=== PATIENT | male | born 1995 | race African-American/Black ===

== ENCOUNTER 2017-01-09 15:50 | Emergency (ER) | payer SELFPAY ==
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
[2017-01-09 19:02] VITALS: BP 131/65
--- NOTE | 2017-01-09 19:50 | EKG REPORT ---
SEVERITY:- OTHERWISE NORMAL ECG - SINUS RHYTHM BORDERLINE RIGHT AXIS DEVIATION ST ELEV, PROBABLE NORMAL EARLY REPOL PATTERN : Confirmed by: Nicole Arauz 09-Jan-2017 19:50:11
== END 2017-01-09 19:07 ==
LOC: ER 15:50
DX: T14.91 Suicide attempt (principal); X83.8XXA Intentional self-harm by other specified means, initial encounter; Y92.143 Cell of prison as the place of occurrence of the external cause
CPT/HCPCS: 93005; 93010; 99284

== ENCOUNTER 2018-11-24 16:51 | Emergency (ER) | payer SELFPAY ==
[2018-11-24] MEDS ORDERED: PENICILLIN V POTASSIUM 500 MG TABLET PO ONE (18:11)
[2018-11-24] MEDS ORDERED: BENZONATATE 100 MG CAPSULE PO ONE (18:11)
[2018-11-24] MEDS ORDERED: IBUPROFEN 800 MG TABLET PO ONE (18:11)
--- NOTE | 2018-11-24 18:12 | ER Document Report ---
HPI - HPI Patient complains to provider of: dental pain Time Seen by Provider: 11/24/18 18:07 Onset: Yesterday Onset/Duration: Sudden Quality of pain: Achy Severity: Severe Pain Level: 4 Context: Patient presents emergency department with complaints of right upper dental pain. Reports symptoms started yesterday. Denies biting into something or breaking tooth. Reports tooth hurts no matter what with heat with cold anything. Denies other symptoms such as fever vomiting diarrhea. Associated Symptoms: None Exacerbated by: Denies Relieved by: Denies Similar symptoms previously: No Recently seen / treated by doctor: No Past Medical History - General Information source: Patient - Social History Smoking Status: Unknown if Ever Smoked Family History: Reviewed & Not Pertinent Patient has suicidal ideation: No Patient has homicidal ideation: No Psychiatric Medical History: Reports: Hx Attention Deficit Hyperactivity Disorder, Hx Depression Surgical Hx: Negative Vertical Provider Document - CONSTITUTIONAL Agree With Documented VS: Yes Exam Limitations: No Limitations General Appearance: WD/WN, No Apparent Distress - INFECTION CONTROL TRAVEL OUTSIDE OF THE [place] IN LAST 30 DAYS: No - HEENT HEENT: Atraumatic, Normocephalic. negative: Pharyngeal Exudate, Pharyngeal Erythema, Tympanic Membrane Red, Tympanic Membrane Bulging Mouth Diagram: 1 - pt c/o pain, no obvious infection. No erythema no swelling no pustule opens mouth wide no Donaldo's good airway - NECK Neck: Normal Inspection, Supple. negative: Lymphadenopathy-Left, Ly mphadenopathy-Right - RESPIRATORY Respiratory: Breath Sounds Normal, No Respiratory Distress - CARDIOVASCULAR Cardiovascular: Regular Rate - MUSCULOSKELETAL/EXTREMETIES Musculoskeletal/Extremeties: MAEW, FROM - NEURO Level of Consciousness: Awake, Alert, Appropriate - DERM Integumentary: Warm, Dry Course - Re-evaluation Re-evalutation: 11/24/18 18:16 Patient was instructed on plan of care to test out his pain with the treatment of Tessalon Perles. He was instructed that it could numb his throat. He was also instructed on the timeframe because he notes that he just wants to get out here. 11/24/18 18:43 patient reports Tessalon Perles did help his tooth pain. We will write him a prescription. He was instructed on follow-up with dentist and given written resources information. He verbalized understanding all instructions Dictation of this chart was performed using voice recognition software; therefore, there may be some unintended grammatical errors. - Vital Signs Vital signs: Temp Pulse Resp BP Pulse Ox 98.7 F 62 18 139/66 H 100 11/24/18 16:59 11/24/18 16:59 11/24/18 16:59 11/24/18 16:59 11/24/18 16:59 Discharge - Discharge Clinical Impression: Pain, dental Condition: Stable Disposition: HOME, SELF-CARE Instructions: [facility], Use of Lhui-Hqg-Rnzkplu Ibuprofen ([facility]), Penicillin V K ([facility]), Toothache ([facility]), Tessalon Perles ([facility]) Additional Instructions: *You have been evaluated for dental pain *Take medications as prescribed *Follow up with dentist this week *Return to ED for worsening condition, changes, needs Monitor your blood pressure. Your blood pressure was elevated today. This may be because you were anxious, in pain or because you need medication. It is important to follow up with your primary care provider for full evaluation. Prescriptions: Benzonatate [Tessalon Perles 100 mg Capsule] 100 mg PO ASDIR PRN #20 capsule PRN Reason: Penicillin V Potassium [Penicillin Vk 500 mg Tablet] 500 mg PO BID #20 tablet Forms: Elevated Blood Pressure
[2018-11-24 19:11] VITALS: BP 132/69
== END 2018-11-24 19:11 | disposition home or self-care (01) ==
LOC: ER 16:51
DX: K08.89 Other specified disorders of teeth and supporting structures (principal)
CPT/HCPCS: 99282

== ENCOUNTER 2019-08-19 16:24 | Emergency (ER) | payer SELFPAY ==
[2019-08-19 17:10] VITALS: BP 141/61
--- NOTE | 2019-08-19 17:59 | ER Document Report ---
ED Oral Problem - General Chief Complaint: Toothache Stated Complaint: ABSCESS/TOOTH Time Seen by Provider: 08/19/19 17:54 Primary Care Provider: ARDEN FOSTER DDS [ACTIVE STAFF] - Follow up as needed Notes: CHIEF COMPLAINT: Dental pain HPI: 23-year-old male presenting with right upper dental pain. States it has been ongoing for months but it was worse over the last day or 2 no facial swelling no fever. Patient indicates that it is the right upper third molar causing his problem today ROS: See HPI - all other systems were reviewed and are otherwise negative Constitutional: no fever Eyes: no drainage, no blurred vision ENT: no runny nose, no sore throat Integumentary: no rash Allergy: no hives MEDICATIONS: I agree with the patient medications as charted by the RN. ALLERGIES: I agree with the allergies as charted by the RN. PAST MEDICAL HISTORY/PAST SURGICAL HISTORY: Reviewed and agree as charted by RN. SOCIAL HISTORY: Reviewed and agree as charted by RN. FAMILY HISTORY: No significant familial comorbid conditions directly related to patient complaint EXAM: Reviewed vital signs as charted by RN. CONSTITUTIONAL: Alert and oriented and responds appropriately to questions. Well-appearing; well-nourished HEAD: Normocephalic; atraumatic EYES: PERRL; Conjunctivae clear, sclerae non-icteric ENT: normal nose; no rhinorrhea; moist mucous membranes; pharynx without lesions noted, no uvula edema or deviation, no tonsillar hypertrophy, phonation normal. Right upper third molar noted to be everted with slight dental caries no gingival edema no facial swelling. No trismus no sublingual swelling. Phonation is normal NECK: Supple without meningismus; non-tender; no cervical lymphadenopathy, no masses CARD: symmetric distal pulses RESP: Normal chest excursion without splinting or tachypnea ABD/GI: non-distended BACK: The back appears normal EXT: Normal ROM in all joints; no cyanosis, no effusions, no edema SKIN: Normal color for age and race; warm; dry; good turgor NEURO: Moves all extremities equally; Motor and sensory function intact PSYCH: The patient's mood and manner are appropriate. Grooming and personal hygiene are appropriate. MDM: 23-year-old male with dental pain, will place on a course of antibiotics anti-inflammatories follow-up with dental TRAVEL OUTSIDE OF THE U.[place] IN LAST 30 DAYS: No - Related Data Allergies/Adverse Reactions: No Known Allergies Allergy (Verified 11/24/18 16:52) Past Medical History - Social History Smoking Status: Unknown if Ever Smoked Family History: Reviewed & Not Pertinent Renal/ Medical History: Denies: Hx Peritoneal Dialysis Psychiatric Medical History: Reports: Hx Attention Deficit Hyperactivity Disorder, Hx Depression Physical Exam - Vital signs Vitals: Temp Pulse Resp BP Pulse Ox 98.4 F 57 L 16 141/61 H 99 08/19/19 17:09 08/19/19 17:09 08/19/19 17:09 08/19/19 17:09 08/19/19 17:09 Course - Vital Signs Vital signs: Temp Pulse Resp BP Pulse Ox 98.4 F 57 L 16 141/61 H 99 08/19/19 17:09 08/19/19 17:09 08/19/19 17:09 08/19/19 17:09 08/19/19 17:09 Discharge - Discharge Clinical Impression: Pain due to dental caries Condition: Stable Disposition: HOME, SELF-CARE Additional Instructions: Medications as prescribed, follow-up with a dentist of your choice for further evaluation and management return for fever greater than 101 or facial swelling Prescriptions: Penicillin V Potassium [Penicillin Vk 500 mg Tablet] 500 mg PO BID #20 tablet Diclofenac Sodium [Voltaren 50 Mg Tablet.] 50 mg PO BID #20 tablet. Referrals: ARDEN FOSTER DDS [ACTIVE STAFF] - Follow up as needed
== END 2019-08-19 18:04 | disposition home or self-care (01) ==
LOC: ER 16:24
DX: K02.9 Dental caries, unspecified (principal)
CPT/HCPCS: 99282

== ENCOUNTER 2020-05-16 14:25 | Emergency (ER) | payer SELFPAY ==
--- NOTE | 2020-05-16 14:57 | ER Document Report ---
ED Medical Screen (RME) - General Chief Complaint: Rectal Bleeding Stated Complaint: RECTAL BLEEDING, VOMITING BLOOD Time Seen by Provider: 05/16/20 14:42 TRAVEL OUTSIDE OF THE [place] IN LAST 30 DAYS: No - HPI Notes: Patient is a 24-year-old male who presents with abdominal pain and diarrhea that began last night. Patient states he was in a lot of pain so he took about 6 to 7 pills of Tylenol and an unknown dose last night. When he woke up this morning he began to vomit. He reports hematemesis and hematochezia. He denies fever. - Related Data Allergies/Adverse Reactions: No Known Allergies Allergy (Verified 05/16/20 14:37) Past Medical History - Social History Chew tobacco use (# tins/day): No Frequency of alcohol use: Occasional Drug Abuse: None Renal/ Medical History: Denies: Hx Peritoneal Dialysis Psychiatric Medical History: Reports: Hx Attention Deficit Hyperactivity Disorder, Hx Depression Physical Exam - Vital signs Vitals: Temp Pulse Resp BP Pulse Ox 98.6 F 59 L 20 131/76 H 100 05/16/20 14:35 05/16/20 14:35 05/16/20 14:35 05/16/20 14:35 05/16/20 14:35 - Abdominal Distension: No distension Tenderness: Tender - diffusely Course - Re-evaluation Re-evalutation: I have greeted and performed a rapid initial assessment of this patient. A comprehensive ED assessment and evaluation of the patient, analysis of test results and completion of medical decision making process will be conducted by an additional ED providers. - Vital Signs Vital signs: Temp Pulse Resp BP Pulse Ox 98.6 F 59 L 20 131/76 H 100 05/16/20 14:35 05/16/20 14:35 05/16/20 14:35 05/16/20 14:35 05/16/20 14:35
--- NOTE | 2020-05-16 16:18 | ER Document Report ---
ED GI Bleed / Rectal Pain <SUSANNA DALE - Last Filed: 05/16/20 19:27> - General Mode of Arrival: Ambulatory Information source: Patient TRAVEL OUTSIDE OF THE [place] IN LAST 30 DAYS: No <DARRYL OLEA - Last Filed: 05/17/20 16:34> - General Chief Complaint: Rectal Bleeding Stated Complaint: RECTAL BLEEDING, VOMITING BLOOD Time Seen by Provider: 05/16/20 14:42 Primary Care Provider: LEILANI,RANCHO [Primary Care Provider] - Follow up as needed Notes: 24-year-old male with no previous medical problems presents to the emergency room complaining of a headache and general body aches that started yesterday. States that he took 7 Tylenol last night of unknown strength. States he thinks he took them around 11 PM. States today he started vomiting earlier this morning. Now has some right-sided and generalized crampy abdominal pain. States he noticed some blood in his stool today. He denies any fevers, no nausea or vomiting at this time. Denies any COVID-19 exposure. No ill contac ts. No bad food that he can think of. States he also noticed some what he thought was possibly blood in his vomit this morning. Patient states that the Tylenol he did take were red in color. Decreased appetite. Continues to complain of some intermittent crampy abdominal pain that gets worse after he eats. States has been able to tolerate p.o. food and fluids without difficulty. (DARRYL OLEA) - Related Data Allergies/Adverse Reactions: No Known Allergies Allergy (Verified 05/16/20 14:37) Past Medical History - General Information source: Patient - Social History Smoking Status: Current Every Day Smoker Chew tobacco use (# tins/day): No Frequency of alcohol use: Occasional Drug Abuse: None Family History: Reviewed & Not Pertinent Renal/ Medical History: Denies: Hx Peritoneal Dialysis Psychiatric Medical History: Reports: Hx Attention Deficit Hyperactivity Disorder, Hx Depression <DARRYL OLEA - Last Filed: 05/17/20 16:34> Review of Systems - Review of Systems Constitutional: No symptoms reported EENT: No symptoms reported Cardiovascular: No symptoms reported Respiratory: No symptoms reported Gastrointestinal: Abdominal pain, Nausea, Vomiting, Blood streaked bowels, Blood in vomit Musculoskeletal: No symptoms reported Skin: No symptoms reported Neurological/Psychological: No symptoms reported -: Yes All other systems reviewed and negative <DARRYL OLEA - Last Filed: 05/17/20 16:34> Physical Exam - Rectal Tenderness: No Stool: Heme negative Hemorrhoids: None Prostate: Normal <DARRYL OLEA - Last Filed: 05/17/20 16:34> - Vital signs Vitals: Temp Pulse Resp BP Pulse Ox 98.6 F 59 L 20 131/76 H 100 05/16/20 14:35 05/16/20 14:35 05/16/20 14:35 05/16/20 14:35 05/16/20 14:35 - Notes Notes: GENERAL: Mild acute distress, non-toxic appearance. HEAD: Normal with no signs of head trauma. EYES: PERRLA, EOMI, conjunctiva normal, no discharge. EARS: Hearing grossly intact. NOSE: Normal. THROAT: Oropharynx is normal. NECK: Normal range of motion, no tenderness, supple, no lymphadenopathy, No adenopathy, no JVD. CHEST: Clear breath sounds bilaterally. No wheezes, rales, or rhonchi. CARDIAC: Bradycardic with normal S1 and S2, without murmurs, gallops, or rubs. VASCULAR: No Edema. Peripheral pulses normal and equal in all extremities. ABDOMEN: Normal and soft with no tenderness, no masses or pulsatile masses. No organomegaly. Positive bowel sounds x4. No CVA tenderness noted bilaterally. GASTROINTESTINAL: Bowel sounds normal LYMPATHTIC: No lymphadenopathy noted. MUSCULOSKELETAL: Good range of motion of all major joints. Extremities without clubbing, cyanosis or edema. NEUROLOGICAL: Alert and oriented x 3. No focal sensory or strength deficits. Speech normal. Follows commands appropriately. PSYCHIATRIC: Normal Affect, judgement and mood. SKIN: Normal appearance with no rashes or lesions. (DARRYL OLEA) Course - Laboratory Result Diagrams: 05/16/20 16:09 05/16/20 16:09 <SUSANNA DALE - Last Filed: 05/16/20 19:27> - Laboratory Result Diagrams: 05/16/20 16:09 05/16/20 16:09 - EKG Interpretation by Pr EKG shows normal: Sinus rhythm Rate: Bradycardia <DARRYL OLEA - Last Filed: 05/17/20 16:34> - Re-evaluation Re-evalutation: 05/16/20 18:11 Patient is resting comfortably no acute distress at this time. Dr. Matos ED attending approached me to tell me that there were other concerns for the patient's visit to the emergency room. Please see her note for mental health concerns. 05/16/20 18:12 Mental health Susanna is aware and has seen the patient. 05/16/20 18:39 Patient currently resting comfortably pain-free. Heme-negative on rectal exam. Offers no other concerns or complaints at this time. 05/16/20 18:48 Spoke with poison control concerning patient's Tylenol level. According to poison control with an ingestion of 17 hours prior to lab results of Tylenol level patient needs to be treated for Tylenol overdose toxicity. Patient will receive 150 mg/kg IV over 60 minutes, then 50mg/kg IV x1 over 4H, then 100 mg/kg IV x1 over 16H. 05/16/20 19:14 Reviewed with patient poison control recommendations. Case was staffed month my ED attending Dr. Geronimo. Patient is aware of need for admission for ongoing IV Mucomyst due to toxic Tylenol level. Patient is agreeable to be admitted. 05/16/20 19:24 Was notified by nursing staff that patient does not want to be medically admitted. Counseled patient on the importance of being admitted for medical management due to his elevated Tylenol level. Also explained to patient that he has been put on IVC papers and that he cannot leave. Patient asked why would he be on IVC papers. Patient had not previously been told that he was being put on papers. Explained to patient that we were given information that he may have tried to harm himself last night by taking an overdose of Tylenol. Patient states that he has never overdosed in the past.. Patient immediately picked up his phone and called his fiance to discuss this. 05/16/20 19:30 Patient was seen running out of the emergency room. Charge nurse was notified. Patient had pulled his IV out prior to leaving the emergency room. Charge nurse has notified [place] [facility] 05/17/20 00:54 (DARRYL OLEA) - Vital Signs Vital signs: Temp Pulse Resp BP Pulse Ox 98.7 F 66 17 129/74 H 99 05/16/20 18:25 05/16/20 18:25 05/16/20 18:25 05/16/20 18:25 05/16/20 18:25 - Laboratory Laboratory results interpreted by me: 05/16/20 05/16/20 05/16/20 15:41 16:09 16:09 RBC 4.18 L Hgb 13.1 L PT Sodium 136.1 L Urine Protein 30 H Urine Ketones TRACE H Urine Urobilinogen 4.0 H Ur Leukocyte Esterase TRACE H Urine Ascorbic Acid 20 H Salicylates 05/16/20 05/16/20 16:09 16:09 RBC Hgb PT 15.7 H Sodium Urine Protein Urine Ketones Urine Urobilinogen Ur Leukocyte Esterase Urine Ascorbic Acid Salicylates < 1.0 L - EKG Interpretation by Me Additional EKG results interpreted by me: 05/16/20 18:10 EKG was interpreted by ER physician Dr. Olivia No acute STEMI Normal sinus rhythm Rate 55 Right atrial abnormality Right axis deviation ST elevation No significant changes when compared to previous EKG of 01/09/2017 (DARRYL OLEA) Discharge <SUSANNA DALE - Last Filed: 05/16/20 19:27> <DARRYL OLEA - Last Filed: 05/17/20 16:34> - Discharge Clinical Impression: Depressed, Overdose Condition: Fair Disposition: ELOPED Additional Instructions: You have been evaluated by both medical and behavioral health teams for suspected overdose. You have been deemed appropriate for discharge. While in the emergency department you received the following services/or had access to: Medical screening and assessment, nursing services, dietary services, pharmacological services, one-on-one counseling and/or psychotherapy, environmental services, and continuous observation by a patient director safety council. Suicidal Ideation Suicidal ideation is a common medical term for thoughts about suicide, which may be as detailed as a formulated plan, without the suicidal act itself. Although most people who undergo suicidal ideation do not commit suicide, some go on to make suicide attempts. The range of suicidal ideation varies greatly from fleeting to detailed planning, role playing, and unsuccessful attempts. While thoughts about suicide are common, most people do not carry out se rious actions to commit suicide. However, based upon your evaluation and discussion with you, we believe you are currently not at risk to act upon your thoughts of suicide. Therefore, you will be discharged home. Follow up care: You are currently not involved in outpatient services, however have been given a community referral list. Due to your history of been seen at the ED and reporting suicidal ideations, you are recommended to seek outpatient care. With you lifestyle and type of work, having an outpatient therapist might be a positive outlet for your anxiety and stress. You are recommended to abstain from THC use and have been given referrals for medication management to be presc ribed a safer medication for anxiety management. You have been given a community outpatient referral list to include phone numbers for [facility] and [facility] mobile crisis. If you experience worsening or a significant change in your symptoms, notify the physician immediately, utilize mobile crisis, or return to the Emergency Department at any time for re-evaluation. Dr. Solis was consulted to care management of this patient; attending physicians in agreement with recommendations and disposition. Referrals: LOCALMD,NO [Primary Care Provider] - Follow up as needed
[2020-05-16 16:30] LABS: ABSOLUTE BASOPHILS # (AUTO) 0.1 10^3/uL (0.0-0.2); ABSOLUTE EOSINOPHILS # (AUTO) 0.1 10^3/uL (0.0-0.6); ABSOLUTE LYMPHOCYTES (AUTO) 1.7 10^3/uL (0.5-4.7); ABSOLUTE MONOCYTES (AUTO) 0.8 10^3/uL (0.1-1.4); ABSOLUTE NEUT (AUTO) 6.2 10^3/uL (1.7-8.2); BASOPHILS % (AUTO) 1.2 % (0-2); EOSINOPHILS % (AUTO) 0.7 % (0-6); HEMATOCRIT 39.7 % (37.9-51.0); HEMOGLOBIN 13.1 g/dL (13.5-17.0); LYMPHOCYTES % (AUTO) 18.9 % (13-45); MEAN CORPUSCULAR HEMOGLOBIN 31.3 pg (27.0-33.4); MEAN CORPUSCULAR VOLUME 95 fl (80-97); MONOCYTES % (AUTO) 9.3 % (3-13); PLATELET COUNT 240 10^3/uL (150-450); RED BLOOD COUNT 4.18 10^6/uL (4.35-5.55); RED CELL DISTRIBUTION WIDTH 12.5 % (11.5-14.0); SEGMENTED NEUTROPHILS % (AUTO) 69.9 % (42-78); TOTAL CELLS COUNTED % (AUTO) 100 %; WHITE BLOOD COUNT 8.9 10^3/uL (4.0-10.5)
[2020-05-16] MEDS ORDERED: NORMAL SALINE 1000 ML 1,000 ML IV ONE (16:30)
[2020-05-16] MEDS ORDERED: FAMOTIDINE INJ/PF 20 MG/2 ML SDV IV ONE (16:31)
[2020-05-16] MEDS ORDERED: ONDANSETRON HCL INJ/PF 4 MG/2 ML SDV IV ONE (16:31)
[2020-05-16 16:37] LABS: APPEARANCE,URINE CLEAR; BILIRUBIN,URINE NEGATIVE (NEGATIVE); COLOR,URINE YELLOW; GLUCOSE, URINE NEGATIVE (NEGATIVE); KETONES,URINE TRACE mg/dL (NEGATIVE); LEUKOCYTE ESTERASE,URINE TRACE (NEGATIVE); NITRITE,URINE NEGATIVE (NEGATIVE); PROTEIN,URINE 30 mg/dL (NEGATIVE); URINE SPECIFIC GRAVITY 1.033
[2020-05-16 16:50] LABS: ACETAMINOPHEN 20 ug/mL (10-30); ALBUMIN 4.1 g/dL (3.5-5.0); ALKALINE PHOSPHATASE 56 U/L (38-126); ANION GAP 8 (5-19); ASPARTATE AMINO TRANSFERASE 38 U/L (17-59); BILIRUBIN,TOTAL 0.7 mg/dL (0.2-1.3); BLOOD UREA NITROGEN 10 mg/dL (7-20); CALCIUM 9.4 mg/dL (8.4-10.2); CARBON DIOXIDE 25 mmol/L (22-30); CHLORIDE 103 mmol/L (98-107); GLUCOSE 94 mg/dL (75-110)
[2020-05-16 16:53] LABS: ALCOHOL < 10 mg/dL (NONE DETECTED); INTERNATIONAL RATION (INR) 1.23; PROTHROMBIN TIME 15.7 SEC (11.4-15.4)
[2020-05-16 16:54] LABS: PARTIAL THROMBOPLASTIN TIME 31.8 SEC (23.5-35.8)
--- NOTE | 2020-05-16 16:54 | ER Document Report ---
Doctor's Note Notes: I was asked by care team to go speak with patient's ian who does have power of sports team marketing intern over him as there is concern for alternative reason for ED evaluation. Patient's ian states that patient has had 3 recent suicide attempts. In November patient had sent out a text message to multiple family members stating his intent to overdose by taking multiple medications. He did take multiple medications, ian is unsure exactly what he took. Woke up the next morning and they went to the crisis center patient received information, but ultimately refused to seek treatment. Last month he overdosed on a bottle of [place], he was found passed out in his car with the empty bottle, he had vomited blood from his nose apparently and refused EMS transport. He had sent out a concerning text before this. Last night patient took an unknown amount of Tylenol, ian believes that this was an attempt to overdose and end his life as he has done this before. She states that she is unsure of the time of ingestion, but believes it was sometime after 7 PM as he was with Mother who is on phone call and ian both expressed concern for multiple suicide attempts recently and the fact that he has been going through a lot recently, they state that he is haunted and has apparently a history of schizophrenia because he talks to people who are not there. Ian asked that this not be disclosed with patient as she is concerned that he will leave the emergency department, apparently he has a history of walking out of the ED. I got into briefly assess patient. Patient states that he took a handful of extra strength Tylenol sometime last night, he states that he took these medication because he was a stomachache however this made the pain worse. He has had some vomiting and right upper quadrant pain. He states that he has had diarrhea which started after eating [place] food, he states that he saw streaks of blood in the stool. Patient is primarily managed by Sandee Orr NP, I have updated her on this discussion and need for behavioral health assessment
[2020-05-16 16:59] LABS: URINE AMPHETAMINES SCREEN NEGATIVE; URINE BARBITURATES SCREEN NEGATIVE; URINE BENZODIAZEPINES SCREEN NEGATIVE; URINE COCAINE SCREEN NEGATIVE; URINE METHADONE SCREEN NEGATIVE; URINE PHENCYCLIDINE SCREEN NEGATIVE
[2020-05-16 17:00] LABS: URINE MARIJUANA (THC) SCREEN UNCONFIRMED POSITIVE
[2020-05-16 18:42] VITALS: BP 129/74
[2020-05-16] MEDS ORDERED: ACETYLCYSTEINE 20% SOLN 800 MG/4 ML VIAL.NEB PO ONE (18:51)
--- NOTE | 2020-05-16 18:54 | EKG REPORT ---
SEVERITY:- ABNORMAL ECG - SINUS RHYTHM RIGHT ATRIAL ABNORMALITY BORDERLINE RIGHT AXIS DEVIATION ST ELEV, PROBABLE NORMAL EARLY REPOL PATTERN : Confirmed by: Ann Lima MD 16-May-2020 18:54:01
[2020-05-16] MEDS ORDERED: ACETYLCYSTEINE INJ 6000 MG/30 ML IV ONE (19:10)
--- NOTE | 2020-05-16 19:22 | PSYCHOLOGICAL NOTE ---
Psych Note - Psych Note Date seen by psych provider: 05/16/20 Time seen by psych provider: 17:20 Psych Note: [id number] Reason for Consult: suspected overdose/ misuse of over the counter medications Consent Permissions: Shanna Leeian, Patient is a 24 year old male who presented to the [facility] ED today via POV due to medical issues. It was suspected that patient overdosed on Tylenol. Patient was admitted to the ED due to stomach pains after taking Tylenol pills. Patient alleges he took 7 pills because he had been on his feet all day and after an argument with his fianc, he had a headache. Patient denies mental health history. He denies suicidal ideations, plan, or intent. He denies homicidal ideation, plan, and intent. He denies history of suicide attempts. He denies history of psychiatric inpatient hospitalizations. 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 However, patient was seen in 2017 in the ED. In 2017, patient attempted to strangle himself with shoe laces and was evaluated by behavioral health in the ED. Patient was cleared by psych and sent back to penit[facility]iary at this time. When asked about being here in 2017, but only stating he came to [place] for 2 months, patient reports he comes and goes often based on where he is to perform. Per history, patient was seen in the ED in 2017. At this time he attempted to strangle himself in penitentiary with shoelaces. He reported self-injurious behaviors in his past and psychiatric treatment. He was cleared from psych and sent back to penitentiary at this time. Collateral: Shanna sosa [phone] Spoke to ian who is patients power of trust and estates attorney and is present at the ED. Ian does not want patient to know she has disclosed this information. Ian reports patient has attempted suicide multiple times in the past. Although reporting suicide attempts, patient has not needed medical evaluations or bene admitted any of the times. Just this past year, patient overdosed in November when he was with his music agent after getting in an argument with his fianc. Ian reports receiving multiple text messages from patient threatening suicide or reporting he has attempted. Ian showed several text messages to the clinician to include one stating he took 20 pills and it is only a matter of time for him. Others stating that after his cousin from [place] , he sent texts in a group chat stating, Tell my family I love them. I am gone from it all. Tell my I love her (referring to ian). Ian also shows another text string from now, while patient is in the ED, from patient stating, I prayed to God I passed out to my . Im tired of everything from everyone. Ian reports patient has a history of physical aggression, he gets into rages, and essentially blacks out when he is angry. She states patient overdosed on Tylenol last night. She reports he told her he took more than 7 Tylenol, but is only reporting 7 to the hospital. She states he has attempted suicide and threatened multiple times in the past. Patient was alert and oriented to self, person, place, time and situation. Mood was euthymic with congruent affect. He denied current SI/HI. Patient did not appear to be responding to internal stimuli as evidenced by fair eye contact and answering questions appropriately when addressed. Thought processes are linear and organized. Conversational speech was within normal limits for rate, tone and prosody. Intellectual abilities are estimated to be average. Insight, judgment, and impulse control were fair as evidenced by coming to the ED due to medical concerns. Patient engages appropriately. 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 Clinical Presentation: suspected overdose IVC Criteria per [place] GS 122C Dangerous to others Within the relevant past the individual No has inflicted or attempted to inflict or threatened to inflict serious bodily harm on another AND No that there is a reasonable probability that this conduct will be repeated. OR No has acted in such a way as to create a substantial risk of serious bodily harm to another AND No that there is a reasonable probability that this conduct will be repeated. OR No has engaged in extreme destruction of property AND NO that there is a reasonable probability that this conduct will be repeated. Previous episodes of dangerousness to others, when applicable, may be considered when determining reasonable probability of future dangerous conduct. Clear, cogent, and convincing evidence that an individual has committed a homicide in the relevant past is prima facie evidence of dangerousness to others. Dangerous to self Within the relevant past the individual has done any of the following: acted in such a way as to show ALL of the following: No The individual would be unable without care, supervision, and the continued assistance of others not otherwise available, to exercise self- control, judgment, and discretion in the conduct of the individual's daily responsibilities and social relations or to satisfy the individual's need for nourishment, personal or medical care, snf, or self-protection and safety. AND No There is a reasonable probability of the individual suffering serious physical debilitation within the near future unless adequate treatment is given. A showing of behavior that is grossly irrational, of actions that the individual is unable to control, of behavior that is grossly inappropriate to the situation, or of other evidence of severely impaired insight and judgment shall create a prima facie inference that the individual is unable to care for himself or herself. OR Yes has attempted suicide or threatened suicide History and pattern of making passive suicidal comments during relationship discord AND No that there is a reasonable probability of suicide unless adequate treatment is given Affect does not support and patient came into the ED voluntarily for medical concerns, if an overdose was attempted, patient likely would not have brought himself here for stomach pain after taking Tylenol; he makes suicidal threats to fiance and family after relationship discord OR No has mutilated himself or herself or attempted to mutilate himself or herself AND No that there is a reasonable probability of serious self-mutilation unless adequate treatment is given. NOTE: Previous episodes of dangerousness to self, when applicable, may be considered when determining reasonable probability of physical debilitation, suicide, or self-mutilation. Impression\plan: Patient is cleared from acute psychiatric services. Patient is not a danger to himself and does not meet criteria for IVC. Patient voluntarily came to the ED due stomach pain. Psych was consulted for concerns of overdose and suicidal ideation. Patient has made multiple passive suicidal statements to fianc and ian reports he took more than 7 Tylenol and actually overdosed. Toxicology does not support an overdose or even a larger dose of Tylenol, which support patient did not want to . Patient came into the ED voluntarily for health concerns, asking to be treated. Patient has a history and pattern of making passive suicidal comments during relationship discord. Patients affect does not support depression and suicidal ideation as he was pleasant, cooperative, and cheerful. 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 Patient came to the ED with his fianc and will be going home with her upon discharge. Patients fianc is also his power of trust and estates attorney and will be included in plan of care. Patient has been given community resources for mobile crisis for [facility] and [facility]. He was also provided a referral list for outpatient providers if starting outpatient therapy or medication management was an option. He was informed if he has worsening symptoms to go to his primary doctor, call mobile crisis, or return to the ED. Dr. Solis was consulted to care management of this patient; attending physicians in agreement with recommendations and disposition. New information came about: apparently, Tylenol was ingested last night and poison control was contacted by the ED. Approximately 17 hours after ingestion, his levels were at 20 (which appeared to be within normal levels), but would indicate he had toxic levels if taken that many hours ago. When confronted, he ripped out IV and ran out of building. ED doctor had placed patient on 24 hour petition due to her concerns for overdose and patient was brought back into the building by ISABELLE. There are now concerns for poor insight and judgement as well as impulsivity issues. A 24 hour petition has been put in place and psychiatric evaluation is ongoing. Patient will be reassessed tomorrow by behavioral health.
[2020-05-16] MEDS ORDERED: ACETYLCYSTEINE 20% SOLN 800 MG/4 ML VIAL.NEB PO SCH (23:00)
== END 2020-05-16 20:20 | disposition left against medical advice (07) ==
LOC: ER 14:25
DX: Z04.6 Encounter for general psychiatric examination, requested by authority (principal); T39.1X2A Poisoning by 4-Aminophenol derivatives, intentional self-harm, initial encounter; Z53.20 Procedure and treatment not carried out because of patient's decision for unspecified reasons; K92.1 Melena; K92.0 Hematemesis; R19.7 Diarrhea, unspecified; R10.84 Generalized abdominal pain; R63.0 Anorexia; F17.200 Nicotine dependence, unspecified, uncomplicated
CPT/HCPCS: 93005; 99281; 96361; 96374; 96375; 36415; 80307 ×4; 83690; 85025; 85610; 85730; 80053; 81001; 93010; J2405; J7030; S0028

== ENCOUNTER 2020-05-17 17:51 | Emergency (ER) | payer SELFPAY ==
--- NOTE | 2020-05-17 18:08 | ER Document Report ---
ED Medical Screen (RME) - General Chief Complaint: Psych Problem Stated Complaint: PSYCH Time Seen by Provider: 05/17/20 17:57 Primary Care Provider: RANCHO DUKE [Primary Care Provider] - Follow up as needed TRAVEL OUTSIDE OF THE [place] IN LAST 30 DAYS: No - HPI Notes: Patient is a 24-year-old male who presents for elevated psych consultation. Patient was seen yesterday in the ED for possible Tylenol overdose he was placed on IVC paperwork but then eloped from the department without receiving any treatment. He returns today as he is concerned about his liver and Tylenol lev els and would like to be seen he is also requesting to be evaluated by psych. He denies any complaints at this time. He also denies any suicidal ideation, homicidal ideation, and hallucinations. - Related Data Allergies/Adverse Reactions: No Known Allergies Allergy (Verified 05/17/20 17:53) Past Medical History Renal/ Medical History: Denies: Hx Peritoneal Dialysis Psychiatric Medical History: Reports: Hx Attention Deficit Hyperactivity Disorder, Hx Depression Physical Exam - General General appearance: Appears well In distress: None - Abdominal Tenderness: Nontender Course - Re-evaluation Re-evalutation: I have greeted and performed a rapid initial assessment of this patient. A comprehensive ED assessment and evaluation of the patient, analysis of test results and completion of medical decision making process will be conducted by an additional ED providers. Doctor's Discharge - Discharge Referrals: RANCHO DUKE [Primary Care Provider] - Follow up as needed
[2020-05-17 18:51] LABS: ABSOLUTE BASOPHILS # (AUTO) 0.1 10^3/uL (0.0-0.2); ABSOLUTE EOSINOPHILS # (AUTO) 0.2 10^3/uL (0.0-0.6); ABSOLUTE LYMPHOCYTES (AUTO) 2.5 10^3/uL (0.5-4.7); ABSOLUTE MONOCYTES (AUTO) 0.9 10^3/uL (0.1-1.4); ABSOLUTE NEUT (AUTO) 6.8 10^3/uL (1.7-8.2); BASOPHILS % (AUTO) 0.8 % (0-2); EOSINOPHILS % (AUTO) 1.8 % (0-6); HEMATOCRIT 40.3 % (37.9-51.0); HEMOGLOBIN 13.3 g/dL (13.5-17.0); LYMPHOCYTES % (AUTO) 23.8 % (13-45); MEAN CORPUSCULAR HEMOGLOBIN 31.4 pg (27.0-33.4); MEAN CORPUSCULAR VOLUME 95 fl (80-97); MONOCYTES % (AUTO) 8.8 % (3-13); PLATELET COUNT 241 10^3/uL (150-450); RED BLOOD COUNT 4.23 10^6/uL (4.35-5.55); RED CELL DISTRIBUTION WIDTH 12.9 % (11.5-14.0); SEGMENTED NEUTROPHILS % (AUTO) 64.8 % (42-78); TOTAL CELLS COUNTED % (AUTO) 100 %; WHITE BLOOD COUNT 10.6 10^3/uL (4.0-10.5)
[2020-05-17 18:55] LABS: APPEARANCE,URINE CLEAR; BILIRUBIN,URINE NEGATIVE (NEGATIVE); COLOR,URINE YELLOW; GLUCOSE, URINE NEGATIVE (NEGATIVE); KETONES,URINE NEGATIVE (NEGATIVE); LEUKOCYTE ESTERASE,URINE TRACE (NEGATIVE); NITRITE,URINE NEGATIVE (NEGATIVE); PROTEIN,URINE NEGATIVE (NEGATIVE); URINE SPECIFIC GRAVITY 1.016
[2020-05-17 19:08] LABS: URINE AMPHETAMINES SCREEN NEGATIVE; URINE BARBITURATES SCREEN NEGATIVE; URINE BENZODIAZEPINES SCREEN NEGATIVE; URINE COCAINE SCREEN NEGATIVE; URINE METHADONE SCREEN NEGATIVE; URINE PHENCYCLIDINE SCREEN NEGATIVE
[2020-05-17 19:09] LABS: ALKALINE PHOSPHATASE 56 U/L (38-126); ANION GAP 8 (5-19); ASPARTATE AMINO TRANSFERASE 82 U/L (17-59); BILIRUBIN,DIRECT 0.1 mg/dL (0.0-0.4); BILIRUBIN,TOTAL 0.3 mg/dL (0.2-1.3); BLOOD UREA NITROGEN 12 mg/dL (7-20); CALCIUM 9.3 mg/dL (8.4-10.2); CARBON DIOXIDE 28 mmol/L (22-30); CHLORIDE 105 mmol/L (98-107); GLUCOSE 83 mg/dL (75-110); POTASSIUM 4.2 mmol/L (3.6-5.0); TOTAL PROTEIN 6.9 g/dL (6.3-8.2)
[2020-05-17 19:14] LABS: URINE MARIJUANA (THC) SCREEN UNCONFIRMED POSITIVE
[2020-05-17 19:15] LABS: ACETAMINOPHEN < 10 ug/mL (10-30); ALCOHOL < 10 mg/dL (NONE DETECTED); SALICYLATE < 1.0 mg/dL (2.0-20.0)
--- NOTE | 2020-05-17 20:52 | ER Document Report ---
ED General - General Chief Complaint: Psych Problem Stated Complaint: PSYCH Time Seen by Provider: 05/17/20 17:57 Primary Care Provider: RANCHO DUKE [NO LOCAL MD] - Follow up as needed TRAVEL OUTSIDE OF THE [place] IN LAST 30 DAYS: No - HPI Notes: Chief complaint: Follow-up on acetaminophen overdose History of present illness: 24-year-old male has been seen here yesterday by another provider after allegedly taking a 6 g dose of Tylenol 24 hours prior to arrival here. He was seen by the behavioral service and was not felt to be suicidal homicidal. The treating provider had talked with him about the possibility of development of liver toxicity although his initial LFTs were normal and his acetaminophen level was undetectable. Patient had eloped from the department during work-up. He spoke with a physician elsewhere earlier today and was advised that he needed to come back to "get the liver checked" to see if he needed to get treatment for acetaminophen toxicity. He is eating and drinking normally. He denies any suicidal or homicidal ideation. - Related Data Allergies/Adverse Reactions: No Known Allergies Allergy (Verified 05/17/20 17:53) Past Medical History - General Information source: Patient, [facility] Records - Social History Smoking Status: Current Every Day Smoker Frequency of alcohol use: Occasional Drug Abuse: Marijuana Family History: Reviewed & Not Pertinent Patient has homicidal ideation: No Renal/ Medical History: Denies: Hx Peritoneal Dialysis Psychiatric Medical History: Reports: Hx Attention Deficit Hyperactivity Disorder, Hx Depression Review of Systems - Review of Systems Notes: Constitutional: Negative for fever. HENT: Negative for sore throat. Eyes: Negative for visual changes. Cardiovascular: Negative for chest pain. Respiratory: Negative for shortness of breath. Gastrointestinal: Negative for abdominal pain, vomiting or diarrhea. Genitourinary: Negative for dysuria. Musculoskeletal: Negative for back pain. Skin: Negative for rash. Neurological: Negative for headaches, weakness or numbness. 10 point ROS negative except as marked above and in HPI. Physical Exam - Notes Notes: GENERAL: Slender male of approximately stated age appearing in no acute distress. SKIN: Good turgor no rashes. HEAD: Normocephalic atraumatic. EYES: PERRLA. EOMI. Conjunctivae and sclerae clear. EARS: CANALS AND TMS CLEAR. NOSE: CLEAR. MOUTH: Moist mucosa. Good dentition. No stridor or edema. No drooling. NECK: Supple. No masses or thyromegaly. No adenopathy. Carotids 2+ without bruits. No JVD. BACK: Symmetrical without tenderness. CHEST: Respirations unlabored. Breath sounds clear and symmetrical. HEART: Regular rhythm. No murmur gallop or rub. ABDOMEN: Soft nontender without masses, organomegaly or rebound. Bowel sounds normally active. No bruits. GENITALIA: Deferred. EXTREMITIES: No edema. No calf tenderness. Cap refill less than 1.5 seconds. Dorsalis pedis and posterior tibial pulses 3+ and symmetrical. NEUROLOGICAL: GCS 15. Alert and oriented x3. Normal gait. Fluent speech. Cranial nerves II through XII intact. Sensorimotor and cerebellar normal. Normal tone. PSYCHIATRIC: Appropriate affect. Course - Re-evaluation Re-evalutation: 05/17/20 20:49 Bilirubin is normal. His transaminase values are all less than 3 times normal. His acetaminophen level remains undetectable. CBC is normal. He is eating and drinking normally and has stable vital signs and no fever. Findings were discussed with [place] poison control. We agree that this is a trivial ingestion and based on current findings he would not meet criteria for treatment with N-acetylcysteine. Patient is reassured. He is cleared medically. Patient has also been seen again today by the behavioral health service and they feel he is not suicidal or homicidal and does not meet IVC criteria. He will be given an outpatient referral and is discharged. Findings, clinical impression and plan of treatment have been discussed with patient/family. Understanding of current findings and recommendations has been acknowledged by them and there is agreement regarding disposition and follow-up. - Laboratory Result Diagrams: 05/17/20 18:27 05/17/20 18:27 Laboratory results interpreted by me: 05/17/20 05/17/20 05/17/20 18:27 18:27 18:27 WBC 10.6 H RBC 4.23 L Hgb 13.3 L AST 82 H ALT 79 H Urine Urobilinogen 4.0 H Ur Leukocyte Esterase TRACE H Salicylates < 1.0 L Acetaminophen < 10 L Discharge - Discharge Clinical Impression: Acetaminophen ingestion Condition: Stable Disposition: HOME, SELF-CARE Additional Instructions: Follow-up with outpatient mental health provider as recommended. Do not take Tylenol dosage in excess of label recommendations. Return here as needed for new or worsening symptoms: Pain that is worsening or unimproved Uncontrolled vomiting High fever or shaking chills Overall worsening Referrals: LOCALMD,NO [NO LOCAL MD] - Follow up as needed
[2020-05-17 21:56] VITALS: BP 124/85
--- NOTE | 2020-05-18 07:31 | EKG REPORT ---
SEVERITY:- BORDERLINE ECG - SINUS RHYTHM BORDERLINE RIGHT AXIS DEVIATION CONVEX ST ELEVATIONS ANTEROSEPTAL LEADS UNCHANGED SINCE 01/09/17, PERHAAPS NORMAL VARIANT. : Confirmed by: Tomás Saldaña MD 18-May-2020 07:30:16
== END 2020-05-17 21:56 | disposition home or self-care (01) ==
LOC: ER 17:51
DX: T39.1X1A Poisoning by 4-Aminophenol derivatives, accidental (unintentional), initial encounter (principal); Y92.009 Unspecified place in unspecified non-institutional (private) residence as the place of occurrence of the external cause; F17.200 Nicotine dependence, unspecified, uncomplicated
CPT/HCPCS: 36415; 80053; 80307; 81001; 85025; 93005; 93010; 99284